=== PATIENT | female | born 2000 | race Caucasian/White ===

== ENCOUNTER 2022-01-25 11:34 | Emergency (ER) | payer BC ==
[2022-01-25 12:38] LABS: HEMOGLOBIN 13.7 gm/dl (12.3-15.3); RED BLOOD COUNT 4.94 M/UL (4.00-5.10); WHITE BLOOD COUNT 7.1 K/UL (4.5-11.0)
[2022-01-25 12:59] LABS: BUN/CREATININE RATIO 18 (0-10)
[2022-01-25] MEDS ORDERED: ZANAFLEX4 MG PO (14:35)
== END 2022-01-25 14:56 | disposition home or self-care (01) ==
LOC: ER1 11:34
PROVIDERS: Physician Assistant
DX: M54.41 Lumbago with sciatica, right side (principal)
CPT/HCPCS: 72100; 80048; 84703; 85025; 85379; 99283